=== PATIENT | male | born 1980 | race Caucasian/White ===

== ENCOUNTER 2016-10-09 07:53 | Emergency (ER) | payer BC ==
[2016-10-09 08:10] VITALS: O2SAT 98
[2016-10-09] MEDS ORDERED: Zofran 4 MG/2 ML VIAL IV ONE (08:28)
[2016-10-09] MEDS ORDERED: Sodium Chloride 0.9% 1000 ML 1,000 ML IV STA (08:28)
[2016-10-09] MEDS ORDERED: ANTIVERT 25 MG PO ONE (08:28)
[2016-10-09] MEDS ORDERED: ANTIVERT 25 MG ONE (08:31)
[2016-10-09] MEDS ORDERED: Zofran 4 MG/2 ML VIAL ONE (08:31)
[2016-10-09] MEDS ORDERED: Sodium Chloride 0.9% 1000 ML 1,000 ML ONE (08:31)
--- NOTE | 2016-10-09 08:34 | ERPHSYRPT ---
- History of Present Illness Time Seen by Provider: 10/09/16 08:10 Source: patient Patient Subjective Stated Complaint: pt states for the past few days he has felt dizzy. states it doesn't matter if he is sitting or standing. states his "head feels heavy and neck feels tight." denies any headache, denies any fever. Triage Nursing Assessment: pt pink, warm, dry. pt ambulated into ER without difficulty. pt afebrile. pupils perrl. 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 He awoke 2 days ago (Saturday) and felt dizziness. Lightheaded and woozy, worse with turning in the bed or upright. Nausea without vomiting. No HOBSON. Worried about brain tumor. Trouble walking. Chronic buzzing in left ear. No hearing loss. No new ear changes. No chest pain. No abd pain. Persisted today. Symptoms moderate. Timing/Duration: day(s) (2) Severity: moderate Allergies/Adverse Reactions: No Known Drug Allergies Allergy (Unverified 10/09/16 08:10) Hx Tetanus, Diphtheria Vaccination/Date Given: Yes (up to date) Hx Influenza Vaccination/Date Given: No Hx Pneumococcal Vaccination/Date Given: No Immunizations Up to Date: Yes - Review of Systems Constitutional: No Fever, No Chills Eyes: No Vision Changes, No Double Vision Ears, Nose, & Throat: Tinnitus (chronic left ear) Respiratory: No Symptoms Cardiac: No Chest Pain, No Syncope Abdominal/Gastrointestinal: Nausea, No Abdominal Pain, No Vomiting Skin: No Rash Neurological: No Focal Weakness, No Headache, No Parasthesia All Other Systems: Reviewed and Negative - Past Medical History Pertinent Past Medical History: No ENT History: No Pertinent History Cardiac History: No Pertinent History Respiratory History: No Pertinent History Endocrine Medical History: Hypoglycemia Musculoskeletal History: No Pertinent History GI Medical History: GERD History: No Pertinent History Psycho-Social History: No Pertinent History Male Reproductive Disorders: No Pertinent History - Past Surgical History Past Surgical History: No Neuro Surgical History: No Pertinent History Cardiac: No Pertinent History Respiratory: No Pertinent History Gastrointestinal: Appendectomy Genitourinary: No Pertinent History Musculoskeletal: No Pertinent History Male Surgical History: No Pertinent History - Social History Smoking Status: Never smoker How long have you smoked: 15 Exposure to second hand smoke: No Drug Use: none Patient Lives Alone: No - Nursing Vital Signs Nursing Vital Signs: Initial Vital Signs Temperature 98.2 F Temperature Source Oral Pulse Rate 62 Respiratory Rate 18 Blood Pressure [Right Arm] 163/90 Pain Intensity 0 - Physical Exam General Appearance: alert Eye Exam: PERRL/EOMI, other (no nystagmus) Ears, Nose, Throat Exam: normal ENT inspection, moist mucous membranes Neck Exam: normal inspection, non-tender, supple Respiratory Exam: normal breath sounds, lungs clear Cardiovascular Exam: regular rate/rhythm, No murmur Gastrointestinal/Abdomen Exam: soft, No tenderness, No distention Back Exam: normal inspection, normal range of motion Extremity Exam: normal inspection, normal range of motion Neurologic Exam: alert, oriented x 3, cooperative, double back operator II-XII nml as tested, nml cerebellar function (normal tandem walk, finger to nose. ), nml station & gait, sensation nml, other (negative rhomberg), No motor deficits Skin Exam: warm, dry, No rash SpO2 Interpretation: normal SpO2: 98 Oxygen Delivery: Room Air - Course Nursing assessment & vital signs reviewed: Yes EKG Interpreted by Me: RATE (52), Sinus Madhav, NORMAL AXIS, NORMAL INTERVALS ( QTc 385), NORMAL QRS, NORMAL ST-T - CT Exams head CT Interpretation: Negative, Discussed w/radiologist Ordered Tests: Active Orders 24 hr Category Date Time Status EKG-ER Only STAT Care 10/09/16 08:28 Active IV Insertion STAT Care 10/09/16 08:28 Active Orthostatic Vital Signs STAT Care 10/09/16 08:14 Active HEAD WITHOUT CONTRAST [CT] Stat Exams 10/09/16 08:28 Completed CBC W DIFF Stat Lab 10/09/16 08:40 Completed CMP Stat Lab 10/09/16 08:40 Completed Medication Summary Discontinued Medications Generic Name Dose Route Start Last Admin Trade Name Freq PRN Reason Stop Dose Admin Sodium Chloride 1,000 mls @ 999 mls/hr 10/09/16 08:28 10/09/16 08:34 Sodium Chloride 0.9% 1000 Ml IV 10/09/16 09:28 999 mls/hr .Q1H1M STA Administration Sodium Chloride Confirm 10/09/16 08:31 Sodium Chloride 0.9% 1000 Ml Administered 10/09/16 08:32 Dose 1,000 mls @ ud .ROUTE .STK-MED ONE Meclizine HCl 25 mg 10/09/16 08:28 10/09/16 08:34 Antivert 25 Mg PO 10/09/16 08:29 25 mg STAT ONE Administration Meclizine HCl Confirm 10/09/16 08:31 Antivert 25 Mg Administered 10/09/16 08:32 Dose 25 mg .ROUTE .STK-MED ONE Ondansetron HCl 4 mg 10/09/16 08:28 10/09/16 08:34 Zofran 4 Mg/2 Ml Vial IV 10/09/16 08:29 4 mg STAT ONE Administration Ondansetron HCl Confirm 10/09/16 08:31 Zofran 4 Mg/2 Ml Vial Administered 10/09/16 08:32 Dose 4 mg .ROUTE .STK-MED ONE Lab/Rad Data: Laboratory Result Diagrams 10/09/16 08:40 10/09/16 08:40 Laboratory Results 10/09/16 10/09/16 Range/Units 08:40 08:40 WBC 6.2 (4.0-10.5) K/mm3 RBC 5.37 (4.1-5.6) M/mm3 Hgb 16.0 (12.5-18.0) gm/dl Hct 46.7 (42-50) % MCV 87.0 (78-100) fl MCH 29.8 (26-32) pg MCHC 34.3 (32-36) g/dl RDW 13.3 (11.5-14.0) % Plt Count 190 (150-450) K/mm3 MPV 10.9 H (6-9.5) fl Gran % 68.1 H (36.0-66.0) % Lymphocytes % 22.5 L (24.0-44.0) % Monocytes % 7.0 (0.0-12.0) % Eosinophils % 2.1 (0.00-5.0) % Basophils % 0.3 (0.0-0.4) % Basophils # 0.02 (0-0.4) Sodium 139 (136-145) mEq/L Potassium 4.1 (3.5-5.1) mEq/L Chloride 103 (98-107) mEq/L Carbon Dioxide 26.7 (21-32) mEq/L Anion Gap 13.0 (5-15) MEQ/L BUN 17 (9-20) mg/dL Creatinine 1.31 H (0.55-1.30) mg/dl Estimated GFR > 60 ML/MIN Glucose 111 H (70-110) MG/DL Calcium 9.7 (8.5-10.1) mg/dL Total Bilirubin 0.90 (0.2-1.0) mg/dL AST 20 (15-37) U/L ALT 34 (12-78) U/L Alkaline Phosphatase 135 H (46-116) U/L Serum Total Protein 8.5 H (6.4-8.2) gm/dL Albumin 4.6 (3.4-5.0) g/dL - Progress Progress Note: 10/09/16 09:59 IVF and antivert given. Likely inner ear phenomena. Advised no work until follow up with Dr Martin and Rx antivert. Counseled pt/family regarding: lab results, diagnosis, need for follow-up, rad results - Departure Time of Disposition: 10:00 Departure Disposition: Home Clinical Impression: Dizziness Condition: Stable Critical Care Time: No Referrals: LARA MARTIN MD [Primary Care Provider] - Instructions: Vertigo Additional Instructions: Off work until follow up with Dr Martin this week. Rx antivert- no driving, operating machinery, orclimbing while taking. Return for problems or concerns. Prescriptions: Smz/Tmp Ds Tablet [Bactrim Ds Tablet] 1 udtab PO BID #20 tablet
[2016-10-09 08:51] LABS: BASOPHIL % 0.3 % (0.0-0.4); Eosinophil % 2.1 % (0.00-5.0); Granulocytes % 68.1 % (36.0-66.0); Lymphocytes % 22.5 % (24.0-44.0); Mean Corpuscular Hemoglobin 29.8 pg (26-32); Mean Platelet Volume 10.9 fl (6-9.5); Platelet Count 190 K/mm3 (150-450); Red Blood Count 5.37 M/mm3 (4.1-5.6); Red Cell Distribution Width 13.3 % (11.5-14.0); White Blood Count 6.2 K/mm3 (4.0-10.5)
[2016-10-09 09:07] LABS: ALBUMIN 4.6 g/dL (3.4-5.0); ALKALINE PHOSPHATASE 135 U/L (46-116); BLOOD UREA NITROGEN 17 mg/dL (9-20); CHLORIDE 103 mEq/L (98-107); Carbon Dioxide 26.7 mEq/L (21-32); Glucose 111 MG/DL (70-110); Potassium 4.1 mEq/L (3.5-5.1); SGOT/AST 20 U/L (15-37); SGPT/ALT 34 U/L (12-78); SODIUM 139 mEq/L (136-145); Total Protein 8.5 gm/dL (6.4-8.2)
--- NOTE | 2016-10-09 09:10 | XRAY ---
Indication: Dizziness. Multiple contiguous axial images obtained through the head without contrast. Comparison: June 22, 2011. Again normal appearing brain parenchyma, ventricles, and bony calvarium. Visualized paranasal sinuses and mastoid air cells are clear. Impression: Stable normal CT head without contrast exam. CTDI 70.00
[2016-10-09 10:27] VITALS: BP 112/69; PULSE 66
== END 2016-10-09 10:31 | disposition home or self-care (01) ==
LOC: ED 07:53
DX: R42 Dizziness and giddiness (principal); R11.0 Nausea; R26.2 Difficulty in walking, not elsewhere classified
CPT/HCPCS: 36000; 36415; 70450; 80053; 85025; 93005; 96360; 96374; 99284; J2405; A9270-GY

== ENCOUNTER 2024-05-18 00:23 | Emergency (ER) | payer BC, OTHER ==
[2024-05-18 00:39] VITALS: RESP 18; TEMP 97.5; O2SAT 97
--- NOTE | 2024-05-18 00:54 | ERPHSYRPT ---
- History of Present Illness Source: patient Exam Limitations: no limitations Patient Subjective Stated Complaint: pt states he had a toothache that woke him up Triage Nursing Assessment: pt ambulated into the er; pt is axo x4; c/o toothache; pt states 6/10 pain to left lower side of mouth; caries present to left lower molar; gums are pink, moist, swollen; no respiratory distress present; vitals wnl Physician History: Patient has a toothache. Is in his left lower molar. There is a small amount of edema. He has not had any fever or chills. He has no trismus or Ludewig's angina type symptoms. He is able to swallow his pharynx is patent. The edema is on the outside of the gumline at the inside. Nothing makes symptoms better. Eating makes it worse. It has been going on for about a day. He does not have a dentist yet. Allergies/Adverse Reactions: No Known Drug Allergies Allergy (Unverified 10/09/16 08:10) Home Medications: No Reportable Medications [No Reported Medications] 05/18/24 [History] Hx Tetanus, Diphtheria Vaccination/Date Given: Yes (up to date) Hx Influenza Vaccination/Date Given: No Hx Pneumococcal Vaccination/Date Given: No Travel Risk - International Travel Have you traveled outside of the country in past 3 weeks: No - Emerging Infectious Disease Are you exhibiting symptoms associated with any current EIDs: No - Review of Systems Constitutional: No Symptoms Eyes: No Symptoms Ears, Nose, & Throat: No Symptoms Respiratory: No Symptoms Cardiac: No Symptoms - Past Medical History Pertinent Past Medical History: No ENT History: No Pertinent History Cardiac History: No Pertinent History Respiratory History: No Pertinent History Endocrine Medical History: Hypoglycemia Musculoskeletal History: No Pertinent History GI Medical History: GERD History: No Pertinent History Psycho-Social History: No Pertinent History Male Reproductive Disorders: No Pertinent History - Past Surgical History Past Surgical History: No Neuro Surgical History: No Pertinent History Cardiac: No Pertinent History Respiratory: No Pertinent History Gastrointestinal: Appendectomy Genitourinary: No Pertinent History Musculoskeletal: No Pertinent History Male Surgical History: No Pertinent History - Social History Smoking Status: Current some day smoker How long have you smoked: 15 Exposure to second hand smoke: No Drug Use: none - Social Determinants of Health Will the patient participate in the screening: Yes Do you worry about a steady place to live?: No Do you have any problems with any of the following?: No known problems In the past 12 months,have you had to go without utilities?: No Transportation Issues: No Has anyone in your support network made you feel unsafe?: No Have you or anyone in your house had to go w/o enough food: No - Nursing Vital Signs Nursing Vital Signs: Initial Vital Signs Temperature 97.5 F 05/18/24 00:30 Pulse Rate 76 05/18/24 00:30 Respiratory Rate 18 05/18/24 00:30 Blood Pressure 118/77 05/18/24 00:30 O2 Sat by Pulse Oximetry 97 05/18/24 00:30 Pain Scale Pain Intensity 6 - Physical Exam General Appearance: no apparent distress Nasal Exam: normal inspection Throat Exam: normal, pharynx normal, dental tenderness, moist mucus membranes, No excessive drooling Neck Exam: normal inspection SpO2: 97 - Course Nursing assessment & vital signs reviewed: Yes - Progress Progress: unchanged Progress Note: Patient was stable throughout stay. I went to start him on clindamycin and give him a few [place]. He is to follow-up with his dentist. He is can also use ice packs and take ibuprofen. 05/18/24 00:52 - Departure Departure Disposition: Home Clinical Impression: Gingivitis Condition: Stable Critical Care Time: No Referrals: LARA MARTIN MD [Primary Care Provider] - Follow up/PCP as directed Instructions: Tooth Abscess (DC)
[2024-05-18 00:55] VITALS: BP 93/78; PULSE 74
[2024-05-18] MEDS ORDERED: CLEOCIN 150 MG CAPSULE ONE (00:57)
[2024-05-18] MEDS ORDERED: NORCO 5/325 MG ONE (00:57)
[2024-05-18] MEDS: CLEOCIN 150 MG CAPSULE PO ONE (00:58)
[2024-05-18] MEDS: NORCO 5/325 MG PO ONE (00:58)
== END 2024-05-18 01:06 | disposition home or self-care (01) ==
LOC: ED 00:23
DX: K05.10 Chronic gingivitis, plaque induced (principal); K08.89 Other specified disorders of teeth and supporting structures; Z79.891 Long term (current) use of opiate analgesic; Z79.899 Other long term (current) drug therapy; Z72.0 Tobacco use
CPT/HCPCS: 99281; 99283; A9270-GY